=== PATIENT | female | born 2000 | race African-American/Black ===

== ENCOUNTER 2019-10-19 22:08 | Emergency (ER) | payer OTHER ==
[~2019-10-19] VITALS: Ht 165.1 cm; Wt 44.0 kg
[2019-10-19] MEDS ORDERED: IBUPROFEN 200200 M1 PO (22:16)
[2019-10-19 22:53] LABS: ABSOLUTE NEUTROPHILS 8.3 thou/uL (1.4-8.2); BASOPHILS 0.1 % (0.0-2.0); HEMATOCRIT 31.9 % (37.0-47.0); HEMOGLOBIN 10.7 gm/dL (12.0-15.0); LYMPHOCYTES 6.9 % (24.0-44.0); MCH 29.4 pg (26.0-34.0); MCHC 33.4 g/dL (28.0-37.0); MCV 87.9 fL (80.0-100.0); MONOCYTES 7.2 % (1.0-8.0); PLATELET COUNT 333 thou/uL (150-400); POLYS 85.8 % (36.0-66.0); RBC 3.63 mil/uL (4.20-5.00); RDW 14.8 % (10.5-14.5); WBC 9.7 thou/uL (4.0-11.0)
[2019-10-19 23:07] LABS: POTASSIUM 3.8 mmol/L (3.5-5.1)
[2019-10-19 23:12] LABS: ALBUMIN 3.6 g/dL (3.4-5.0); DIRECT BILIRUBIN 0.3 mg/dL (<0.1-0.2); TOTAL BILIRUBIN 2.4 mg/dL (<0.1-1.0); TOTAL PROTEIN 8.2 g/dL (6.4-8.2)
[2019-10-20 00:35] LABS: URINE BILIRUBIN NEGATIVE (Negative); URINE BLOOD NEGATIVE (Negative); URINE CLARITY CLEAR; URINE COLOR YELLOW; URINE GLUCOSE-RANDOM* NEGATIVE (Negative); URINE KETONES 2+ (Negative); URINE NITRITE-REFLEX NEGATIVE (Negative); URINE PROTEIN (DIPSTICK) NEGATIVE (Negative); URINE SPECIFIC GRAVITY <= 1.005 (1.005-1.035)
[2019-10-20 00:39] LABS: URINE LEUKOCYTES-REFLEX 1+ (Negative)
[2019-10-20 00:47] LABS: BACTERIA-REFLEX 1-9 Few /HPF (None Seen); CASTS None Seen /LPF (None Seen); CRYSTALS None Seen /LPF (None Seen); MUCUS 0-3 Light strn/LPF (None Seen); SQUAMOUS 0-3 Few /LPF (0-3); URINE RBC 0-2 Rare /HPF (0-2); URINE WBC-REFLEX 6-15 Few /HPF (0-5)
[2019-10-20 01:23] VITALS: BP 93/56
[2019-10-20] MEDS ORDERED: LACTULOSE PO (01:53)
[2019-10-20] MEDS ORDERED: FLAGYL500 M1 PO (01:53)
[2019-10-20] MEDS ORDERED: CIPROFLOXACIN500 M1 PO (01:53)
== END 2019-10-20 02:16 | disposition home or self-care (01) ==
LOC: ER 22:08
PROVIDERS: Emergency Medicine
DX: K52.9 Noninfective gastroenteritis and colitis, unspecified (principal); K59.00 Constipation, unspecified; N39.0 Urinary tract infection, site not specified; N72 Inflammatory disease of cervix uteri; Z03.818 Encounter for observation for suspected exposure to other biological agents ruled out

== ENCOUNTER 2020-12-03 04:23 | Emergency (ER) | payer OTHER ==
[~2020-12-03] VITALS: Ht 165.1 cm; Wt 43.1 kg
[~2020-12-03 04:23] MED LIST: CIPROFLOXACIN500 M1 PO; FLAGYL500 M1 PO; IBUPROFEN 200200 M1 PO; LACTULOSE PO
[2020-12-03 05:23] LABS: URINE BILIRUBIN NEGATIVE (Negative); URINE BLOOD 3+ (Negative); URINE CLARITY SL CLOUDY; URINE COLOR YELLOW; URINE GLUCOSE-RANDOM* NEGATIVE (Negative); URINE KETONES NEGATIVE (Negative); URINE NITRITE-REFLEX NEGATIVE (Negative); URINE PROTEIN (DIPSTICK) 2+ (Negative); URINE UROBILINOGEN 0.2 E.U./dl (0.2-1.0)
[2020-12-03 05:25] LABS: URINE LEUKOCYTES-REFLEX 3+ (Negative)
[2020-12-03 05:37] LABS: BACTERIA-REFLEX >30 Many /HPF (None Seen); CASTS None Seen /LPF (None Seen); CRYSTALS None Seen /LPF (None Seen); MUCUS 0-3 Light strn/LPF (None Seen); SQUAMOUS 0-3 Few /LPF (0-3); URINE RBC >20 Many /HPF (NONE SEEN); URINE WBC-REFLEX >25 Many /HPF (0-5)
[2020-12-03] MEDS ORDERED: CEPHALEXIN500 MG PO (05:38)
[2020-12-03 05:48] VITALS: BP 140/67
== END 2020-12-03 05:48 | disposition home or self-care (01) ==
LOC: ER 04:23
PROVIDERS: Emergency Medicine
DX: N39.0 Urinary tract infection, site not specified (principal); M79.605 Pain in left leg